=== PATIENT | male | born 1965 | race Caucasian/White ===

== ENCOUNTER 2017-11-05 18:13 | Emergency (ER) | payer OTHER ==
[~2017-11-05] VITALS: Ht 175.3 cm; Wt 95.3 kg
[2017-11-05] MEDS ORDERED: LIPITOR10 MG PO (18:28)
[2017-11-05 21:55] VITALS: BP 153/89
== END 2017-11-05 21:55 | disposition home or self-care (01) ==
LOC: M.ERS 18:13
DX: S61.011A Laceration without foreign body of right thumb without damage to nail, initial encounter (principal); I10 Essential (primary) hypertension; X18.XXXA Contact with other hot metals, initial encounter; Y93.89 Activity, other specified; Y92.89 Other specified places as the place of occurrence of the external cause; Y99.8 Other external cause status